=== PATIENT | female | born 1935 | race Caucasian/White ===

== ENCOUNTER 2022-12-26 17:11 | Inpatient (IN) | payer OTHER ==
--- OUTSIDE RECORDS SUMMARY | 2022-12-26 17:16 | XMS REPORT | Continuity of Care Document ---
:1935 Author Organization [facility] t Address [address] [place] [address] [address] [place] [address] Care Team Providers Name Role Phone Tutu Montiel MDammed Primary Care Physician CANDIDO KLINE MADHURA Attending Clinician Unavailable [id number] Attending Clinician Unavailable JIMENEZ MURPHY Attending Clinician Unavailable SISSONRyan Attending Clinician Unavailable Jose Elias Gonzalez Attending Clinician [phone] RADIOLOGY Attending Clinician Unavailable Radiology Attending Clinician Unavailable SATYA Attending Clinician Unavailable Maria Teresa Coates MD Attending Clinician MARIA TERESA COATES Attending Clinician Unavailable Pob, [facility] Main Attending Clinician Unavailable Doctor Unassigned, [place] Attending Clinician Unavailable Jimenez Murphy MD Attending Clinician Only, Adc Test Attending Clinician Unavailable CANDIDO KLINE MADHURA Admitting Clinician Unavailable [id number] Admitting Clinician Unavailable JIMENEZ MURPHY Admitting Clinician Unavailable SISSON_Uche Admitting Clinician Unavailable TAVON MATHEWS Admitting Clinician Unavailable SATYA Admitting Clinician Unavailable Jimenez Murphy MD Admitting Clinician Payers Payer Name Policy Type Policy Number Effective Date Expiration Date S [facility] [id number] MEDICARE PART A \\T\\ [id number] 1999 B 00:00:00 COMMERCIAL [id number] 2005 NON-CONTRACT GENERIC 00:00:00 [place]ICARE B-[place]: [id number] 1999 [employer] 00:00:00 [employer] [id number] INSURANCE COMPANY (MEDICARE SUPPLEMENT) [facility] [id number] Problems Condition Condition Condition Status Onset Resolution Last Treating Co mments Source Name Details Category Date Date Treatment Clinician Date Asthmatic Asthmatic Problem Active 2020-06 Swe [facility] bronchitis Bronchitis 2-15 [facility] 00:[facility]: [facility] Essential Essential Problem Active Swe [facility] hypertensi Hypertensi 8-17 [facility] on [facility] 00:00: [facility] Chest pain Chest pain Disease Active M ethodi 10-22 st 00:00: Hospita 00 l Essential Essential Disease Active Met hodi hypertensi hypertensi 10-22 st on on 00:00: Hospita 00 l Acquired Acquired Disease Active Metho di hypothyroi hypothyroi 10-22 st dism dism 00:00: Hospita 00 l Depression Depression Disease Active M ethodi 10-22 st 00:00: Hospita 00 l 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 10-22 st on on 00:00: Hospita 00 l Chest pain Chest pain Disease Active U nivers 505 ity of 00:00: [place] 00 Medical Branch Allergies, Adverse Reactions, Alerts Allergy Allergy Status Severity Reaction(s) Onset Inactive Treating Comm ents Source Name Type Date Date Clinician Ciproflo Propensi Active Method i xacin ty to 06 st adverse 00:00: Hospita reaction 00 l s to drug Ciproflo Propensi Active Hallucinatio Univers xacin ty to ns 505 ity of adverse 00:00: [place] reaction 00 Medical s Branch CIPROFLO DRUG Active Hallucinates Un myriam XACIN INGREDI 505 ity of 00:00: [place] 00 Medical Branch Social History Social Habit Start Date Stop Date Quantity Comments Source Exposure to Not sure [facility] of SARS-CoV-2 (event) [facility] History of tobacco Current smoker [facility] History of Social 2018-05-02 2018-05-[address] function 00:00:00 00:00:00 Hospital Tobacco use and 2017-10-23 2017-10-23 Smokeless Worship exposure 00:00:00 00:00:00 tobacco non-user Hospital Sex Assigned At [birth year] [facility] 00:00:00 00:00:00 Hospital Smoking Status Start Date Stop Date Source Former Smoker [facility] Never smoker [facility] Medications Ordered Filled Start Stop Current Ordering Indication Dosage Frequency Signature Comments Components Source Medication Medication Date Date Medication? Clinician (SIG) Name Name gadobenate 2021- No [id number] .2mL/kg 0.2 mL/kg, Univers dimeglumine 06-30 Intravenou i ty of (MULTIHANCE 18:15: 18:14 s, ONCE, 1 [place] -15 mL) 00 :00 dose, On Medical injection Wed Branch 0.2 mL/kg 06/30/21 at 1215, Routine losartan 25 2020-0 Yes 25mg Take 25 mg Univers mg tablet 8-13 by mouth ity of 10:32: daily. [place] 45 Medical Branch levothyroxi 2020-0 Yes Take by Uni vers ne sodium 8-13 mouth. ity of (LEVOTHYROX 10:32: [place] INE ORAL) 45 Medical Branch losartan 2020-0 Yes 100mg Take 100 Univ ers 100 mg 8-13 mg by ity of tablet 10:32: mouth [place] 45 daily. Medical Branch aspirin 81 2020-0 Yes 81mg Take 81 mg U nivers mg chewable 8-13 by mouth ity of tablet 10:32: daily. 4x [place] 45 weekly Medical Branch verapamil 2020-0 Yes 240mg Take 240 Uni vers 240 mg ER 8-13 mg by ity of tablet 10:32: mouth [place] 45 daily. Medical Branch montelukast 2020-0 Yes Take by Uni vers sodium 8-13 mouth. ity of (MONTELUKAS 10:32: [place] T ORAL) 45 Medical Branch cyanocobala 2020-0 Yes Take by Uni vers min, 8-13 mouth. ity of vitamin 10:32: [place] B-12, (-12 45 Medical DOTS ORAL) Branch omeprazole 2020-0 Yes 20mg Take 20 mg U nivers 20 mg 8-13 by mouth ity of capsule 10:32: daily. [place] [address] Medical Branch furosemide 2020-0 Yes 40mg Take 40 mg U nivers 40 mg 8-13 by mouth ity of tablet 10:32: daily. [place] [address] Medical Branch levalbutero 2020-0 Yes Use as Univ ers l 1.25 8-13 directed ity of mg/0.5 mL 10:32: every 4 [place] nebulizer 45 (four) Medical solution hours as Branch needed for Wheezing. thyroid,por 2020-0 Yes Take by Uni vers k (ARMOUR 8-13 mouth. ity of THYROID 10:32: [place] ORAL) Medical Branch losartan 25 2020-0 Yes 25mg Take 25 mg Univers mg tablet 8-13 by mouth ity of 10:32: daily. [place] [address] Medical Branch levothyroxi 2020-0 Yes Take by Uni vers ne sodium 8-13 mouth. ity of (LEVOTHYROX 10:32: [place] INE ORAL) Medical Branch losartan 2020-0 Yes 100mg Take 100 Univ ers 100 mg 8-13 mg by ity of tablet 10:32: mouth [place] 45 daily. Medical Branch aspirin 81 2020-0 Yes 81mg Take 81 mg U nivers mg chewable 8-13 by mouth ity of tablet 10:32: daily. 4x [place] 45 weekly Medical Branch verapamil 2020-0 Yes 240mg Take 240 Uni vers 240 mg ER 8-13 mg by ity of tablet 10:32: mouth [place] 45 daily. Medical Branch montelukast 2020-0 Yes Take by Uni vers sodium 8-13 mouth. ity of (MONTEL[place]AS 10:32: [place] T ORAL) Medical Branch cyanocobala 2020-0 Yes Take by Uni vers min, 8-13 mouth. ity of vitamin 10:32: [facility]-12, (B-12 45 Medical DOTS ORAL) Branch omeprazole 2020-0 Yes 20mg Take 20 mg U nivers 20 mg 8-13 by mouth ity of capsule 10:32: daily. [place] [address] Medical Branch furosemide 2020-0 Yes 40mg Take 40 mg U nivers 40 mg 8-13 by mouth ity of tablet 10:32: daily. [place] [address] Medical Branch levalbutero 2020-0 Yes Use as Univ ers l 1.25 8-13 directed ity of mg/0.5 mL 10:32: every 4 [place] nebulizer 45 (four) Medical solution hours as Branch needed for Wheezing. thyroid,por 2020-0 Yes Take by Uni vers k (ARMOUR 8-13 mouth. ity of THYROID 10:32: [place] ORAL) 45 Medical Branch losartan 25 2020-0 Yes 25mg Take 25 mg Univers mg tablet 8-13 by mouth ity of 10:32: daily. [place] 45 Medical Branch levothyroxi 2020-0 Yes Take by Uni vers ne sodium 8-13 mouth. ity of (LEVOTHYROX 10:32: [place] INE ORAL) 45 Medical Branch losartan 2020-0 Yes 100mg Take 100 Univ ers 100 mg 8-13 mg by ity of tablet 10:32: mouth [place] 45 daily. Medical Branch aspirin 81 2020-0 Yes 81mg Take 81 mg U nivers mg chewable 8-13 by mouth ity of tablet 10:32: daily. 4x [place] 45 weekly Medical Branch verapamil 2020-0 Yes 240mg Take 240 Uni vers 240 mg ER 8-13 mg by ity of tablet 10:32: mouth [place] 45 daily. Medical Branch montelukast 2020-0 Yes Take by Uni vers sodium 8-13 mouth. ity of (MONTEL[place]AS 10:32: [place] T ORAL) 45 Medical Branch cyanocobala 2020-0 Yes Take by Uni vers min, 8-13 mouth. ity of vitamin 10:32: [place] B-12, (B-12 45 Medical DOTS ORAL) Branch omeprazole 2020-0 Yes 20mg Take 20 mg U nivers 20 mg 8-13 by mouth ity of capsule 10:32: daily. [place] [address] Medical Branch furosemide 2020-0 Yes 40mg Take 40 mg U nivers 40 mg 8-13 by mouth ity of tablet 10:32: daily. 45 Medical Branch levalbutero 2020-0 Yes Use as Univ ers l 1.25 8-13 directed ity of mg/0.5 mL 10:32: every 4 [place] nebulizer 45 (four) Medical solution hours as Branch needed for Wheezing. thyroid,por 2020-0 Yes Take by Uni vers k (ARMOUR 8-13 mouth. ity of THYROID 10:32: [place] ORAL) 45 Medical Branch hydroCHLORO 2018-1 Yes 25mg Take 1 Univ ers thiazide 25 1-10 tablet by ity of mg tablet 00:00: mouth [place] 00 every Medical morning Branch and evening. hydroCHLORO 2018-1 Yes 25mg Take 1 Univ ers thiazide 25 1-10 tablet by ity of mg tablet 00:00: mouth [place] 00 every Medical morning Branch and evening. hydroCHLORO 2018-1 Yes 25mg Take 1 Univ ers thiazide 25 1-10 tablet by ity of mg tablet 00:00: mouth [place] 00 every Medical morning Branch and evening. aspirin 2018-0 Yes 81mg QD Take 81 mg Meth cyndy (ECOTRIN) 5-[address] 81 MG 14:25: daily. Hospita enteric 47 l coated tablet FLUoxetine 2018-0 Yes 10mg QD Take 10 mg M ethodi (PROzac) 10 5-[address] MG capsule 14:25: daily. Hospi ta 47 l hydroCHLORO 2018-0 Yes 25mg QD Take 25 mg Methodi thiazide 5-[address] (HYDRODIURI 14:25: daily. Hosp terrell L) 25 MG 47 l tablet losartan 2017-0 Yes 100mg QD Take 100 Meth cyndy (COZAAR) 5-[address] 100 MG 14:25: mouth Hospita tablet 47 daily. l omeprazole 2018-0 Yes 20mg QD Take 20 mg M ethodi (PriLOSEC) 5-[address] 20 MG 14:25: daily. Hospita capsule 47 l verapamil 2018-0 Yes 240mg QD Take 240 Met hodi sustained 5-[address] release 14:25: mouth Hospita (CALAN-SR) 47 nightly. l 240 MG SR tablet acetaminoph 2017-0 Yes 650mg Q6H Take 650 M ethodi en 5-[address] (TYLENOL) 14:25: mouth Hospita 325 MG 47 every 6 l tablet (six) hours as needed for mild pain or moderate pain. thyroid, 2018-0 Yes 15mg QD Take 15 mg Met hodi pork, 5-[address] (ARMOUR 14:25: daily. Hospita THYROID) 30 47 l mg tablet aspirin 2018-0 Yes 81mg QD Take 81 mg Meth cyndy (ECOTRIN) 5-[address] 81 MG 14:25: daily. Hospita enteric 47 l coated tablet FLUoxetine 2018-0 Yes 10mg QD Take 10 mg M ethodi (PROzac) 10 5-[address] MG capsule 14:25: daily. Hospi ta 47 l hydroCHLORO 2018-0 Yes 25mg QD Take 25 mg Methodi thiazide 5-[address] (HYDRODIURI 14:25: daily. Hosp terrell L) 25 MG 47 l tablet losartan 2017-0 Yes 100mg QD Take 100 Meth cyndy (COZAAR) 5-[address] 100 MG 14:25: mouth Hospita tablet 47 daily. l omeprazole 2017-0 Yes 20mg QD Take 20 mg M ethodi (PriLOSEC) 5-[address] 20 MG 14:25: daily. Hospita capsule 47 l verapamil 2018-0 Yes 240mg QD Take 240 Met hodi sustained 5-[address] release 14:25: mouth Hospita (CALAN-SR) 47 nightly. l 240 MG SR tablet acetaminoph 2017-0 Yes 650mg Q6H Take 650 M ethodi en 5-[address] (TYLENOL) 14:25: mouth Hospita 325 MG 47 every 6 l tablet (six) hours as needed for mild pain or moderate pain. thyroid, 2017-0 Yes 15mg QD Take 15 mg Met hodi pork, 5-[address] (ARMOUR 14:25: daily. Hospita THYROID) 30 47 l mg tablet albuterol albuterol No albuterol [facility] sulfate 2.5 sulfate 2.5 sulfate Communi mg/3 mL mg/3 mL 2.5 mg/3 ty (0.083 %) (0.083 %) mL (0.083 Hospita solution solution %) l for for solution Clinics nebulizatio nebulizatio for n USE 1 n USE 1 nebulizati AMPULE VIA AMPULE VIA on USE 1 NEBULIZER NEBULIZER AMPULE VIA EVERY 4 TO EVERY 4 TO NEBULIZER 6 HOURS 6 HOURS EVERY 4 TO 6 HOURS aspirin aspirin No aspirin [facility] l Clinics ciprofloxac ciprofloxac No ciprofloxa [facility] in 500 mg in 500 mg ruth 500 mg Communi tablet Take tablet Take tablet ty 1 tablet 1 tablet Take 1 Hospi ta every 12 every 12 tablet l hours by hours by every 12 Cli nics oral route oral route hours by for 7 days. for 7 days. oral route for 7 days. diclofenac diclofenac No diclofenac [facility] 1 % topical 1 % topical 1 % C om[facility]i gel APPLY gel APPLY topical ty DIRECTED DIRECTED gel APPLY Hospita TOPICALLY TOPICALLY l TO THE TO THE DIRECTED Clinics AFFECTED AFFECTED TOPICALLY AREA TWICE AREA TWICE TO THE DAILY DAILY AFFECTED AREA TWICE DAILY fluoxetine fluoxetine No fluoxetine [facility] 10 mg 10 mg 10 mg Communi capsule 2 capsule 2 capsule 2 ty tabs Q AM tabs Q AM tabs Q [facility] furosemide furosemide No furosemide [facility] 40 mg 40 mg 40 mg Communi tablet tablet tablet ty [facility] gabapentin gabapentin No gabapentin [facility] 100 mg 100 mg 100 mg Communi capsule capsule capsule ty TAKE 1 TAKE 1 TAKE 1 Hospita CAPSULE BY CAPSULE BY CAPSULE BY l MOUTH EVERY MOUTH EVERY MOUTH Clinics DAY AT DAY AT EVERY DAY BEDTIME BEDTIME AT BEDTIME levocetiriz levocetiriz No levocetiri [facility] ine 5 mg ine 5 mg zine 5 mg Co mmuni tablet TAKE tablet TAKE tablet ty 1 TABLET BY 1 TABLET BY TAKE 1 Hospita MOUTH EVERY MOUTH EVERY TABLET BY l DAY IN THE DAY IN THE MOUTH Cl inics EVENING EVENING EVERY DAY IN THE EVENING Linzess 72 Linzess 72 No Linzess 72 [facility] mcg capsule mcg capsule mcg C ommuni TAKE 1 TAKE 1 capsule ty CAPSULE BY CAPSULE BY TAKE 1 H ospita MOUTH EVERY MOUTH EVERY CAPSULE BY l DAY DAY MOUTH Clinics EVERY DAY losartan losartan No losartan Swe [facility] 100 mg 100 mg 100 mg Communi tablet tablet tablet ty [facility] montelukast montelukast No montelukas [facility] 10 mg 10 mg t 10 mg Communi tablet TAKE tablet TAKE tablet ty 1 TABLET BY 1 TABLET BY TAKE 1 Hospita MOUTH EVERY MOUTH EVERY TABLET BY l DAY IN THE DAY IN THE MOUTH Cl inics EVENING EVENING EVERY DAY IN THE EVENING AUTOMATIC CLIPPER Thyroid AUTOMATIC CLIPPER Thyroid No AUTOMATIC CLIPPER Thyroid [facility] 30 mg 30 mg 30 mg Communi tablet TAKE tablet TAKE tablet ty 1 TABLET BY 1 TABLET BY TAKE 1 Hospita MOUTH EVERY MOUTH EVERY TABLET BY l DAY DAY MOUTH Clinics EVERY DAY omeprazole omeprazole No omeprazole [facility] 20 mg 20 mg 20 mg Communi capsule,del capsule,del capsule,de ty ayed ayed layed Hospita release release release l TAKE 1 TAKE 1 TAKE 1 Clinics CAPSULE BY CAPSULE BY CAPSULE BY MOUTH TWICE MOUTH TWICE MOUTH DAILY DAILY TWICE DAILY Trelegy Trelegy No Trelegy Butler Ellipta 100 Ellipta 100 Ellipta Communi mcg-62.5 mcg-62.5 100 ty mcg-25 mcg mcg-25 mcg mcg-62.5 Hospita powder for powder for mcg-25 mcg l inhalation inhalation powder for Clinics INHALE 1 INHALE 1 inhalation PUFF BY PUFF BY INHALE 1 MOUTH EVERY MOUTH EVERY PUFF BY DAY DAY MOUTH EVERY DAY verapamil verapamil No verapamil [facility] ER 240 mg ER 240 mg ER 240 mg Communi 24 hr 24 hr 24 hr ty capsule,ext capsule,ext capsule,ex Hospita ended ended tended l release release release Clinic s albuterol albuterol No 3mL Q5H albuterol [facility] sulfate 2.5 sulfate 2.5 sulfate Communi mg/3 mL mg/3 mL 2.5 mg/3 ty (0.083 %) (0.083 %) mL (0.083 Hospita solution solution %) l for for solution Clinics nebulizatio nebulizatio for n Inhale 3 n Inhale 3 nebulizati mL every mL every on Inhale 4-6 hours 4-6 hours 3 mL every by by 4-6 hours nebulizatio nebulizatio by n route. n route. nebulizati on route. Cayce Cayce No Cayce [facility] Thyroid 30 Thyroid 30 Thyroid 30 Communi mg tablet mg tablet mg tablet ty TK 1 T PO TK 1 T PO TK 1 T PO Hospita QD. SEE QD. SEE QD. SEE l DOCTOR FOR DOCTOR FOR DOCTOR FOR Clinics REFILLS. REFILLS. REFILLS. aspirin aspirin No aspirin [facility] Clinics benzonatate benzonatate No 1capsul TID benzonatat [facility] 200 mg 200 mg e(s) e 200 mg Communi capsule capsule capsule ty Take 1 Take 1 Take 1 Hospita capsule 3 capsule 3 capsule 3 l times a day times a day times a Clinics by oral by oral day by route for route for oral route 10 days. 10 days. for 10 days. Breztri Breztri No 2puff(s BID Breztri Swe gaston Aerosphere Aerosphere ) Aerosphere Communi 160 160 160 ty mcg-9mcg-4. mcg-9mcg-4. mcg-9mcg-4 Hospita 8mcg/actuat 8mcg/actuat .8mcg/actu l ion HFA ion HFA ation HFA Clin ics aerosol aerosol aerosol inhaler inhaler inhaler Inhale 2 Inhale 2 Inhale 2 puffs twice puffs twice puffs a day by a day by twice a inhalation inhalation day by route for route for inhalation 30 days. 30 days. route for 30 days. diclofenac diclofenac No diclofenac [facility] 1 % topical 1 % topical 1 % C om[facility]i gel APPLY gel APPLY topical ty DIRECTED DIRECTED gel APPLY Hospita TOPICALLY TOPICALLY l TO THE TO THE DIRECTED Clinics AFFECTED AFFECTED TOPICALLY AREA TWICE AREA TWICE TO THE DAILY DAILY AFFECTED AREA TWICE DAILY fluoxetine fluoxetine No fluoxetine [facility] 10 mg 10 mg 10 mg Communi capsule capsule capsule ty [facility] furosemide furosemide No furosemide [facility] 40 mg 40 mg 40 mg Communi tablet tablet tablet ty [facility] levocetiriz levocetiriz No levocetiri [facility] ine 5 mg ine 5 mg zine 5 mg Co mmuni tablet TAKE tablet TAKE tablet ty 1 TABLET BY 1 TABLET BY TAKE 1 [facility] MOUTH EVERY MOUTH EVERY TABLET BY l DAY IN THE DAY IN THE MOUTH Cl inics EVENING EVENING EVERY DAY IN THE EVENING losartan losartan No losartan Swe [facility] 100 mg 100 mg 100 mg Communi tablet tablet tablet ty [facility] montelukast montelukast No montelukas [facility] 10 mg 10 mg t 10 mg Communi tablet TAKE tablet TAKE tablet ty 1 TABLET BY 1 TABLET BY TAKE 1 [facility] MOUTH EVERY MOUTH EVERY TABLET BY l DAY IN THE DAY IN THE MOUTH Cl inics EVENING EVENING EVERY DAY IN THE EVENING omeprazole omeprazole No omeprazole [facility] 20 mg 20 mg 20 mg Communi capsule,del capsule,del capsule,de ty ayed ayed layed Hospita release release release l TAKE 1 TAKE 1 TAKE 1 Clinics CAPSULE BY CAPSULE BY CAPSULE BY MOUTH TWICE MOUTH TWICE MOUTH DAILY DAILY TWICE DAILY verapamil verapamil No verapamil [facility] ER 240 mg ER 240 mg ER 240 mg Communi 24 hr 24 hr 24 hr ty capsule,ext capsule,ext capsule,ex Hospita ended ended tended l release release release Clinic s albuterol albuterol No albuterol [facility] sulfate 2.5 sulfate 2.5 sulfate Communi mg/3 mL mg/3 mL 2.5 mg/3 ty (0.083 %) (0.083 %) mL (0.083 Hospita solution solution %) l for for solution Clinics nebulizatio nebulizatio for n USE 1 n USE 1 nebulizati AMPULE VIA AMPULE VIA on USE 1 NEBULIZER NEBULIZER AMPULE VIA EVERY 4 TO EVERY 4 TO NEBULIZER 6 HOURS 6 HOURS EVERY 4 TO 6 HOURS Cayce Cayce No Cayce [facility] Thyroid 30 Thyroid 30 Thyroid 30 Communi mg tablet mg tablet mg tablet ty TK 1 T PO TK 1 T PO TK 1 T PO Hospita QD. SEE QD. SEE QD. SEE l DOCTOR FOR DOCTOR FOR DOCTOR FOR Clinics REFILLS. REFILLS. REFILLS. aspirin aspirin No aspirin [facility] Clinics azithromyci azithromyci No azithromyc [facility] n 250 mg n 250 mg in 250 mg Co mmuni tablet TK 2 tablet TK 2 tablet TK ty TS PO ON TS PO ON 2 TS PO ON H ospita DAY 1, THEN DAY 1, THEN DAY 1, l TK 1 T PO D TK 1 T PO D THEN TK 1 Clinics FOR 4 DAYS FOR 4 DAYS T PO D FOR 4 DAYS benzonatate benzonatate No benzonatat [facility] 200 mg 200 mg e 200 mg Communi capsule capsule capsule ty TAKE 1 TAKE 1 TAKE 1 Hospita CAPSULE BY CAPSULE BY CAPSULE BY l MOUTH THREE MOUTH THREE MOUTH Clinics TIMES DAILY TIMES DAILY THREE FOR 10 DAYS FOR 10 DAYS TIMES DAILY FOR 10 DAYS Breztri Breztri No Breztri [facility] Aerosphere Aerosphere Aerosphere Communi 160 160 160 ty mcg-9mcg-4. mcg-9mcg-4. mcg-9mcg-4 Hospita 8mcg/actuat 8mcg/actuat .8mcg/actu l ion HFA ion HFA ation HFA Clin ics aerosol aerosol aerosol inhaler inhaler inhaler INHALE 2 INHALE 2 INHALE 2 PUFFS BY PUFFS BY PUFFS BY MOUTH TWICE MOUTH TWICE MOUTH DAILY DAILY TWICE DAILY cefuroxime cefuroxime No cefuroxime [facility] axetil 500 axetil 500 axetil 500 Communi mg tablet mg tablet mg tablet ty TAKE 1 TAKE 1 TAKE 1 Hospita TABLET BY TABLET BY TABLET BY l MOUTH TWICE MOUTH TWICE MOUTH Clinics DAILY FOR DAILY FOR TWICE 10 DAYS 10 DAYS DAILY FOR 10 DAYS diclofenac diclofenac No diclofenac [facility] 1 % topical 1 % topical 1 % C ommuni gel APPLY gel APPLY topical ty DIRECTED DIRECTED gel APPLY Hospita TOPICALLY TOPICALLY l TO THE TO THE DIRECTED Clinics AFFECTED AFFECTED TOPICALLY AREA TWICE AREA TWICE TO THE DAILY DAILY AFFECTED AREA TWICE DAILY fluoxetine fluoxetine No fluoxetine [facility] 10 mg 10 mg 10 mg Communi capsule capsule capsule ty [facility] furosemide furosemide No furosemide [facility] 40 mg 40 mg 40 mg Communi tablet tablet tablet ty [facility] levocetiriz levocetiriz No levocetiri [facility] ine 5 mg ine 5 mg zine 5 mg Co mmuni tablet TAKE tablet TAKE tablet ty 1 TABLET BY 1 TABLET BY TAKE 1 Hospita MOUTH EVERY MOUTH EVERY TABLET BY l DAY IN THE DAY IN THE MOUTH Cl inics EVENING EVENING EVERY DAY IN THE EVENING levofloxaci levofloxaci No 1 Q24H levofloxac [facility] n 500 mg n 500 mg in 500 mg Co mmuni tablet Take tablet Take tablet ty 1 tablet 1 tablet Take 1 Hospi ta every 24 every 24 tablet l hours by hours by every 24 Cli nics oral route oral route hours by for 7 days. for 7 days. oral route for 7 days. Linzess 72 Linzess 72 No 1capsul Q1D Linzess 72 [facility] mcg capsule mcg capsule e(s) mcg C ommuni Take 1 Take 1 capsule ty capsule capsule Take 1 Hospita every day every day capsule l by oral by oral every day Clin ics route for route for by oral 30 days. 30 days. route for 30 days. losartan losartan No losartan [facility] 100 mg 100 mg 100 mg Communi tablet tablet tablet ty [facility] montelukast montelukast No montelukas [facility] 10 mg 10 mg t 10 mg Communi tablet TAKE tablet TAKE tablet ty 1 TABLET BY 1 TABLET BY TAKE 1 Hospita MOUTH EVERY MOUTH EVERY TABLET BY l DAY IN THE DAY IN THE MOUTH Cl inics EVENING EVENING EVERY DAY IN THE EVENING omeprazole omeprazole No omeprazole [facility] 20 mg 20 mg 20 mg Communi capsule,del capsule,del capsule,de ty ayed ayed layed Hospita release release release l TAKE 1 TAKE 1 TAKE 1 Clinics CAPSULE BY CAPSULE BY CAPSULE BY MOUTH TWICE MOUTH TWICE MOUTH DAILY DAILY TWICE DAILY prednisone prednisone No 1 BID prednisone [facility] 20 mg 20 mg 20 mg Communi tablet Take tablet Take tablet ty 1 tablet 1 tablet Take 1 Hospi ta twice a day twice a day tablet l by oral by oral twice a Clinic s route for 5 route for 5 day by days. days. oral route for 5 days. verapamil verapamil No verapamil [facility] ER 240 mg ER 240 mg ER 240 mg Communi 24 hr 24 hr 24 hr ty capsule,ext capsule,ext capsule,ex Hospita ended ended tended l release release release Clinic s albuterol albuterol No albuterol [facility] sulfate 2.5 sulfate 2.5 sulfate Communi mg/3 mL mg/3 mL 2.5 mg/3 ty (0.083 %) (0.083 %) mL (0.083 Hospita solution solution %) l for for solution Clinics nebulizatio nebulizatio for n USE 1 n USE 1 nebulizati AMPULE VIA AMPULE VIA on USE 1 NEBULIZER NEBULIZER AMPULE VIA EVERY 4 TO EVERY 4 TO NEBULIZER 6 HOURS 6 HOURS EVERY 4 TO 6 HOURS aspirin aspirin No aspirin [facility] l Clinics diclofenac diclofenac No diclofenac [facility] 1 % topical 1 % topical 1 % C ommuni gel APPLY gel APPLY topical ty DIRECTED DIRECTED gel APPLY Hospita TOPICALLY TOPICALLY l TO THE TO THE DIRECTED Clinics AFFECTED AFFECTED TOPICALLY AREA TWICE AREA TWICE TO THE DAILY DAILY AFFECTED AREA TWICE DAILY fluoxetine fluoxetine No fluoxetine [facility] 10 mg 10 mg 10 mg Communi capsule 2 capsule 2 capsule 2 ty tabs Q AM tabs Q AM tabs Q AM Hospita l Clinics furosemide furosemide No furosemide [facility] 40 mg 40 mg 40 mg Communi tablet tablet tablet ty Hospita l Clinics gabapentin gabapentin No 1capsul Q1D gabapentin [facility] 100 mg 100 mg e(s) 100 mg Communi capsule capsule capsule ty Take 1 Take 1 Take 1 Hospita capsule capsule capsule l every day every day every day Clinics by oral by oral by oral route at route at route at bedtime for bedtime for bedtime 90 days. 90 days. for 90 days. levocetiriz levocetiriz No levocetiri [facility] ine 5 mg ine 5 mg zine 5 mg Co mmuni tablet TAKE tablet TAKE tablet ty 1 TABLET BY 1 TABLET BY TAKE 1 Hospita MOUTH EVERY MOUTH EVERY TABLET BY l DAY IN THE DAY IN THE MOUTH Cl inics EVENING EVENING EVERY DAY IN THE EVENING Linzess 72 Linzess 72 No 1capsul Q1D Linzess 72 [facility] mcg capsule mcg capsule e(s) mcg C ommuni Take 1 Take 1 capsule ty capsule capsule Take 1 Hospita every day every day capsule l by oral by oral every day Clin ics route for route for by oral 30 days. 30 days. route for 30 days. losartan losartan No losartan Swe [facility] 100 mg 100 mg 100 mg Communi tablet tablet tablet ty [facility]ospita [facility] Clinics montelukast montelukast No montelukas [facility] 10 mg 10 mg t 10 mg Communi tablet TAKE tablet TAKE tablet ty 1 TABLET BY 1 TABLET BY TAKE 1 Hospita MOUTH EVERY MOUTH EVERY TABLET BY l DAY IN THE DAY IN THE MOUTH Cl inics EVENING EVENING EVERY DAY IN THE EVENING AUTOMATIC CLIPPER Thyroid AUTOMATIC CLIPPER Thyroid No AUTOMATIC CLIPPER Thyroid [facility] 30 mg 30 mg 30 mg Communi tablet TAKE tablet TAKE tablet ty 1 TABLET BY 1 TABLET BY TAKE 1 Hospita MOUTH EVERY MOUTH EVERY TABLET BY l DAY DAY MOUTH Clinics EVERY DAY omeprazole omeprazole No omeprazole [facility] 20 mg 20 mg 20 mg Communi capsule,del capsule,del capsule,de ty ayed ayed layed Hospita release release release l TAKE 1 TAKE 1 TAKE 1 Clinics CAPSULE BY CAPSULE BY CAPSULE BY MOUTH TWICE MOUTH TWICE MOUTH DAILY DAILY TWICE DAILY Trelegy Trelegy No Trelegy [facility] Ellipta 100 Ellipta 100 Ellipta Communi mcg-62.5 mcg-62.5 100 ty mcg-25 mcg mcg-25 mcg mcg-62.5 Hospita powder for powder for mcg-25 mcg l inhalation inhalation powder for Clinics INHALE 1 INHALE 1 inhalation PUFF BY PUFF BY INHALE 1 MOUTH EVERY MOUTH EVERY PUFF BY DAY DAY MOUTH EVERY DAY verapamil verapamil No verapamil [facility] ER 240 mg ER 240 mg ER 240 mg Communi 24 hr 24 hr 24 hr ty capsule,ext capsule,ext capsule,ex Hospita ended ended tended l release release release Clinic s Immunizations Ordered Immunization Filled Immunization Date Status Commen ts Source Name Name Influenza, Influenza, 2021-04-16 Completed [facility] ty injectable, MDCK, injectable, MDCK, 10:07:46 Hospital Clinics preservative free, preservative free, quadrivalent quadrivalent Influenza, Influenza, 2021-04-16 Completed [facility] injectable, MDCK, injectable, MDCK, 10:07:46 Hospital Clinics preservative free, preservative free, quadrivalent quadrivalent Influenza, Influenza, 2021-04-16 Completed [facility] ty injectable, MDCK, injectable, MDCK, 10:07:46 Hospital Clinics preservative free, preservative free, quadrivalent quadrivalent Vital Signs Vital Name Observation Time Observation Value Comments Source BP Diastolic 2022-10-11 00:00:00 65 mm[Hg] [facility] Height 2022-10-11 00:00:00 65 [in_i] [facility] BMI (Body Mass 2022-10-11 00:00:00 21.6 kg/m2 [facility]) [facility] BP Systolic 2022-10-11 00:00:00 125 mm[Hg] [facility] Body Weight 2022-10-11 00:00:00 2080 [oz_av] [facility] s BP Diastolic 2022-09-01 00:00:00 70 mm[Hg] [facility] Height 2022-09-01 00:00:00 65 [in_i] [facility] s BMI (Body Mass 2022-09-01 00:00:00 20.6 kg/m2 [facility]) [facility] s BP Systolic 2022-09-01 00:00:00 134 mm[Hg] [facility] Body Weight 2022-09-01 00:00:00 1984 [oz_av] [facility] s BP Diastolic 2021-10-15 00:00:00 79 mm[Hg] [facility] Height 2021-10-15 00:00:00 65 [in_i] [facility] s BMI (Body Mass 2021-10-15 00:00:00 21.5 kg/m2 [facility]) [facility] s BP Systolic 2021-10-15 00:00:00 163 mm[Hg] [facility] s Body Weight 2021-10-15 00:00:00 2065.6 [oz_av] [facility] BP Diastolic 2021-04-14 00:00:00 75 mm[Hg] [facility] s Height 2021-04-14 00:00:00 65 [in_i] [facility] s BMI (Body Mass 2021-04-14 00:00:00 22 kg/m2 [facility] Index) [facility] s BP Systolic 2021-04-14 00:00:00 171 mm[Hg] [facility] Body Weight 2021-04-14 00:00:00 2112 [oz_av] [facility] Procedures Procedure Date / Time Performing Clinician Source Performed XR, chest, 2 view 2022-10-11 00:00:00 [facility] MR ABDOMEN W WO CONTRAST 2021-06-30 18:22:56 Requisition, Paper [facility] FECAL IMMUNOCHEMICAL TEST 2021-02-11 00:36:00 [facility] 2020-12-14 21:56:00 Tavon Mathews [facility] HORMONE [facility] COMP. METABOLIC PANEL 2020-12-14 21:56:00 Tavon Mathews [facility] ([id number]) [facility] Total Hysterectomy [facility] Plan of Care Planned Activity Planned Date Details Comments Source Future Scheduled 2022-12-01 COVID-19 VACCINE (#1) [facility] Test 10:28:51 [code = COVID-19 VACCINE (#1)] Future Scheduled 2022-12-01 SHINGLES VACCINES (1 [facility] Test 10:28:51 of 2) [code = SHINGLES VACCINES (1 of 2)] Future Scheduled 2022-12-01 65+ [facility]CCAL [facility] Test 10:28:51 VACCINE (1 - PCV) [code = 65+ PNEUMOCOCCAL VACCINE (1 - PCV)] Future Scheduled 2022-12-01 INFLUENZA VACCINE [facility] Test 10:28:51 [code = INFLUENZA VACCINE] Diagnostic Test 2022-10-11 urinalysis, dipstick [facility] Pending 00:00:00 [code = urinalysis, Hospital Clinics dipstick] Future Scheduled 2021-07-20 COVID-19 VACCINE (1) [facility] Test 21:18:13 [code = COVID-19 VACCINE (1)] Future Scheduled 2021-07-20 SHINGLES VACCINES [facility] Test 21:18:13 (#1) [code = SHINGLES VACCINES (#1)] Future Scheduled 2021-07-20 65+ P[facility]UMOCOCCAL [facility] Test 21:18:13 VACCINE (1 of 1 - PPSV23) [code = 65+ PNEUMOCOCCAL VACCINE (1 of 1 - PPSV23)] Future Scheduled 2021-07-20 INFLUENZA VACCINE [facility] Test 21:18:13 [code = INFLUENZA VACCINE] Encounters Start End Encounter Admission Attending Care Care Encounter Source Date/Time Date/Time Type Type Clinicians Facility Department ID 2022-09-02 Outpatient 3 ELISA KLINE PUL [id number] [facility] 10:56:48 [facility]O [id number] [place] 2022-09-01 Outpatient 3 [id number] ENCSL REF [id number] [facility] 18:48:14 [id number] [facility] [place] 2022-08-25 Outpatient 3 [id number] ENCSL REF [id number] [facility] 13:11:21 [id number] [facility] [place] 2021-04-16 Outpatient R [facility] SUSANNE [id number] Univers 10:24:22 JIMENEZ Duncan [facility] 2022-10-11 2022-10-11 Outpatient LISA_Uche [facility] [id number] [facility] 00:00:00 00:00:[address] [place] [address] i ty Hospita l Clinics 2022-10-11 2022-10-11 [facility] [place] [facility] 00:00:00 00:00:00 Ilsa Gonzalez [facility] uni MSN, RECEPTIONIST SCHEDULER, Hospital - ty BUNKER WORKER-C: [address] [facility], Clinic s [address] [facility] [address], Sharon Gonzalez, JOHAN MSN, BUNKER WORKER-C [address] , Ph. 2022-09-03 2022-09-12 Inpatient 3 ELISA KLINE [facility] [id number] [facility] 15:22:00 12:35:00 CANDIDO [id number] [facility] itation [place] 2022-09-01 2022-09-01 [facility] [place] [id number] [facility] 00:00:00 00:00:00 Lisa [facility] uni MSN, RECEPTIONIST SCHEDULER, Hospital - ty BUNKER WORKER-C: [address] [facility] [address] [facility], Clinic s [address], Jose Elias [address], Sharon Gonzalez, [place] MSN, BUNKER WORKER-C [address] , Ph. 2021-10-15 2021-10-15 Outpatient [facility] [id number] [facility] 05:31:00 05:31:00 429 Commun i ty Hospita [facility] 2021-10-15 2021-10-15 [facility] [id number] 0230 [facility] 00:00:00 00:00:00 316 Commun i ty Hospita [facility] 2021-10-15 2021-10-15 [facility] [place] [id number] [facility] 00:00:00 00:00:00 iLsa [facility] uni MSN, RECEPTIONIST SCHEDULER, Hospital - ty BUNKER WORKER-C: [address] [facility], [facility] s [address], [facility] [address], Sharon Gonzalez, [place] MSN, BUNKER WORKER-C [address] , Ph. 2021-10-15 2021-10-15 [facility] [id number] 00:00:00 00:00:00 [facility] [id number] 2021-06-30 2021-06-30 Outpatient R RADIOLOGY [facility] [id number] Univers 10:12:31 23:59:00 ity [facility] 2021-06-30 2021-06-30 Hospital Radiology [facility] 1.2.840.114 [id number] Univers 10:12:31 23:59:00 Encounter VAUGHN [id number] ity [facility] 4.2.7.2.686 [place] [facility] [phone] [facility] [address] 2021-04-14 2021-04-14 Outpatient HARMONY [facility] 632 [place] 06:03:00 06:03:00 _L 027 Commun i ty Hospita l Clinics 2021-04-14 2021-04-14 [facility] [place] 27 [facility] 00:00:00 00:00:00 Lisa [facility] MSN, RECEPTIONIST SCHEDULER, Hospital - ty BUNKER WORKER-C: [address] [facility], Clinic s [address], [facility] [address], [place], [place] MSN, BUNKER WORKER-C [address] , Ph. 2021-04-14 2021-04-14 Outpatient [facility] [id number] 00:00:00 00:00:00 [facility] [id number] 2021-02-27 2021-02-27 [place] [id number] Univers 15:29:00 23:59:00 Encounter Maria Teresa Hoffman [id number] ity of [facility] 4.2.7.2.686 Isaias as [phone] [address] 2021-02-27 2021-02-27 [facility]patient [facility] [id number] Univers 00:00:00 00:00:00 MARIA TERESA grover [facility] 2021-02-10 2021-02-[address]840[address]114 [id number] Univers 09:11:00 23:59:00 Encounter Maria Teresa Hoffman [id number] ity of [facility] 4.2.7.2.686 Isaias as [id number] [address] 2021-02-10 2021-02-10 [facility] [id number] Univers 00:00:00 00:00:00 MARIA TERESA grover [facility] 2020-12-14 2020-12-14 Soap Drier Operator Rodolfo, [facility] Lab Main [facility] 1.2.8 40.114 [id number] Univers 16:36:17 16:51:17 Visit Maria Teresa Coates [id number] ity of [place] 4.2.7.2.686 [place] Profess[place] [id number] [address] 2020-12-14 2020-12-14 Outpatient R JAXON [facility] [id number] Univers 16:45:00 16:45:00 MARIA TERESA ity of [facility] 2020-12-14 2020-12-14 Orders Doctor PRIYA 1.2.840.114 [id number] Univers 00:00:00 00:00:00 Only Unassigned, TONG [id number] ity of [place] [facility] 4.2.7.2.686 Isaias as [id number] [address] 2020-01-30 2020-01-30 [facility] 1.2.840.114 [id number] 07:35:00 10:32:00 Encounter eJimenezton 350.1.13.10 [place] 4.2.7.2.686 Surgical [id number] [place] [address] 2020-01-30 2020-01-30 [facility] 1.2.840.114 [id number] Univers 07:35:00 10:32:00 Encounter Jimenez duncan 350.1.13.10 ity of [place].2.7.2.686 [place] Surgical [phone] Med [address] 2020-01-29 2020-01-29 Laboratory Only, [facility] 1.2.840.114 [id number] 13:36:55 13:51:55 Only Test Lilian 350.1.13.10 [place] 4.2.7.2.686 [place] [id number] [facility] 2020-01-29 2020-01-29 Laboratory Only, [facility] Test [facility] 1.2.840. 114 [id number] Univers 13:36:55 13:51:55 Only Charafeddine, Nizar [address] [place] 350.1.1 3.10 ity of [place] 4.2.7.2.686 [facility] [id number] [facility] [address] 2020-01-29 2020-01-29 Outpatient R [facility] [id number] Univers 13:45:00 13:45:00 JIMENEZ Duncan f [facility] 2020-01-29 2020-01-29 Orders Doctor POWERS 1.2.840.114 [id number] 00:00:00 00:00:00 Only Unassigned, TONG 350.1.13.10 [place] [facility] 4.2.7.2.686 [id number] [id number] 2020-01-29 2020-01-29 Orders Doctor PRIYA 1.2.840.114 [id number] Univers 00:00:00 00:00:00 Only Unassigned, TONG 350.1.13.10 ity of [place] [facility] 4.2.7.2.686 Isaias [id number] [facility] [address] 2020-01-06 2020-01-06 [facility] 1.2.840.114 [id number] 09:44:00 23:59:00 Encounter Jimenez [place] 350.1.13.10 [place] 4.2.7.2.686 [place] [id number] 801 2020-01-06 2020-01-06 [facility] 1.2.840.114 [id number] Univers 09:44:00 23:59:00 Encounter Jimenez [place] 350.1.13.10 ity of [place] 4.2.7.2.686 [facility] [id number] [facility] [address] 2020-01-06 2020-01-06 Outpatient R [facility] [id number] Univers 00:00:00 00:00:00 JIMENEZ Duncan [facility] 2019-12-24 2019-12-24 Soap Drier Operator Musa Reynolds [facility] 1.2.840.114 [id number] 15:06:30 15:21:30 Visit Lab Main Lilian 350.1.13.10 [place] 4.2.7.2.686 [facility] [phone] [address] 2019-12-24 2019-12-24 Soap Drier Operator Rodolfo, Musa Lab Main [facility] 1.2.8 40.114 [id number] Univers 15:06:30 15:21:30 Visit Jimenez Murphy 350.1.1 3.10 ity of [place] 4.2.7.2.686 [place] Profess[place] [id number] Me dical [address] 2019-12-24 2019-12-24 Outpatient R [facility] [id number] [facility] 15:15:00 15:15:00 JIMENEZ Duncan [facility] 2019-12-24 2019-12-24 Orders Doctor POWERS 1.2.840.114 [id number] 00:00:00 00:00:00 Only Unassigned, TONG 350.1.13.10 [place] [facility] 4.2.7.2.686 [id number] [id number] 2019-12-24 2019-12-24 Orders Doctor POWERS 1.2.840.114 [id number] Univers 00:00:00 00:00:00 Only Unassigned, TONG 350.1.13.10 ity of [place] [facility] 4.2.7.2.686 Isaias as [id number] [address] 2019-12-02 2019-12-02 [facility] 1.2.840.114 7 [id number] 09:52:00 23:59:00 Encounter Jimenez duncan 350.1.13.10 [place] 4.2.7.2.686 [place] [id number] [facility] 2019-12-02 2019-12-02 [facility] 1.2.840.114 [id number] Univers 09:52:00 23:59:00 Encounter Jimenez duncan 350.1.13.10 ity of [place] 4.2.7.2.686 [place] [id number] [facility] [address] [place] 2019-12-02 2019-12-02 Outpatient R [facility] [id number] Univers 09:50:46 09:51:00 JIMENEZ Duncan [facility] 2019-12-02 2019-12-02 [facility] 1.2.840.114 [id number] 09:50:00 09:51:00 Encounter eTeresahéctor Quintana 350.1.13.10 [place] 4.2.7.2.686 [place] [id number] 805 2019-12-02 2019-12-02 [facility] 1.2.840.114 [id number] [facility] 09:50:00 09:51:00 Encounter eTeresahéctor Quintana 350.1.13.10 ity of [place] 4.2.7.2.686 [facility] [place] [phone] [place] [id number] [place] 2019-12-02 2019-12-02 Orders Doctor PRIYA 1.2.840.114 [id number] 00:00:00 00:00:00 Only Unassigned, TONG 350.1.13.10 [place] [facility] 4.2.7.2.686 [id number] [id number] 2019-12-02 2019-12-02 Orders Doctor PRIYA 1.2.840.114 [id number] Univers 00:00:00 00:00:00 Only Unassigned, TONG 350.1.13.10 ity of [place] [facility] 4.2.7.2.686 Isaias [id number] [address] 2019-09-16 2019-09-16 Outpatient R [facility] [id number] [facility] 11:28:41 23:59:00 Sylvester JIMENEZ hobson f [facility] 2019-09-16 2019-09-16 [facility] 1.2.840.114 [id number] 11:28:00 23:59:00 Encounter e Jimenez Quintana 350.1.13.10 [place] 4.2.7.2.686 [place] [id number] 806 2019-09-16 2019-09-16 [facility] 1.2.840.114 [id number] [facility] 11:28:00 23:59:00 Encounter e, Jimenez Quintana 350.1.13.10 ity of [place] 4.2.7.2.686 [facility] [phone] [facility] [address] Results Test Description Test Time Test Comments Results Result Comments Source Urinalysis macro (dipstick) panel - Urine 2022-10-11 11:21:0 0 Test Item Value Reference Range Interpretation Comme nts Leukocytes (test code = Leukocytes) Negative Nitrite (test code = Nitrite) negative Urobilinogen (test code = Urobilinogen) .2 Protein (test code = Protein) Negative pH (test code = pH) 6.0 Blood (test code = Blood) Negative Specific Tridell (test code = Specific Tridell) 1.020 Ketone (test code = Ketone) Negative Bilirubin (test code = Bilirubin) Negative Glucose (test code = Glucose) Negative Appearance (test code = Appearance) Clear Color (test code = Color) Yellow [facility] - Urine 2021-10-15 16:18:00 Test Item Value Reference Range Interpretation Comments Leukocytes (test code = Small Leukocytes) Nitrite (test code = Nitrite) negative Urobilinogen (test code = .2 Urobilinogen) Protein (test code = Protein) Negative pH (test code = pH) 7.0 Blood (test code = Blood) Negative Specific Tridell (test code = 1.025 Specific Tridell) Ketone (test code = Ketone) Negative Bilirubin (test code = Negative Bilirubin) Glucose (test code = Glucose) Negative Appearance (test code = Slightly Cloudy Appearance) Color (test code = Color) [facility] [id number] 01:01:39 Test Item Value Reference Range Interpretation Comments FECAL IMMUNOCHEMICAL TEST Negative Negative (test code = 45465-2) TOMAS (test code = TOMAS) <100 ng/mL = Negative (does not assure absence of lesion). Lab Interpretation (test Normal code = 51522-3) [facility] [id number] 01:19:39 Test Item Value Reference Range Interpretation Comments TSH (test code = See_Comment [Automated message] [id number]) The system [employer] generated this result transmitted ref erence range: 0.45 - 4 .70 mIU/L. The refe rence range was not u sed to interpret this result as normal/abnor mal. Lab Interpretation (test Normal code = 58887-2) [facility] ([id number])2020-12-15 00:51:16 Test Item Value Reference Range Interpretation Comments NA (test code = 139 mmol/L 135-145 [id number]) K (test code = 4.1 mmol/L 3.5-5.0 9282739985) CL (test code = 99 mmol/L 98-108 4153809136) CO2 TOTAL (test code = 33 mmol/L 23-31 H 5546246997) AGAP (test code = 2-16 1582127114) BUN (test code = 12 mg/dL 7-23 6729909151) GLUCOSE (test code = 73 mg/dL 70-110 7137619894) CREATININE (test code = 0.70 mg/dL 0.50-1.04 1731135876) TOTAL BILI (test code = 0.9 mg/dL 0.1-1.4 4883357331) CALCIUM (test code = 9.8 mg/dL 8.6-10.6 1291630448) T PROTEIN (test code = 7.1 g/dL 6.3-8.2 6591826437) ALBUMIN (test code = 4.1 g/dL 3.5-5.0 1852421819) ALK PHOS (test code = 108 U/L 34-122 6113429567) ALTv (test code = 18 U/L 5-35 1742-6) AST(SGOT) (test code = 34 U/L 13-40 5307061744) eGFR (test code = mL/min/1.73m2 5573482882) TOMAS (test code = TOMAS) Association of Glomerular Filtration Rate (GFR) and Staging of Kidney Disease* + --+ --+ ------+| GFR (mL/min/1.73 m2) ?| With Kidney Damage ?| ?Without Kidney Damage+ --------+ --------+ +| ?>90 ?| ?Stage one ?| ? Normal ?+ ---+ ---+ -------+| ?60-89 ?| ?Stage two ?| ? Decreased GFR ? + --+ --+ ------+| ?30-59 ?| ?Stage three ?| ? Stage three ? + --+ --+ ------+| ?15-29 ?| ?Stage four ? | ? Stage four ?+ ---+ ---+ -------+| ?<15 (or dialysis) ? ?| ?Stage five ? | ? Stage five ?+ ---+ ---+ -------+ *Each stage assumes the associated GFR level has been in effect for at least three months. ?Stages 1 to 5, with or without kidney disease, indicate chronic kidney disease. Notes: Determination of stages one and two (with eGFR >59mL/min/1.73 m2) requires estimation of kidney damage for at least three months as defined by structural or functional abnormalities of the kidney, manifested by either:Pathological abnormalities or Markers of kidney damage (including abnormalities in the composition of the blood or urine or abnormalities in imaging tests). Lab Interpretation Abnormal (test code = 24102-0) [facility]"
[2022-12-26 18:15] VITALS: BMI 21.9
[2022-12-26] MEDS ORDERED: ONDANSETRON 4 MG/2 ML VIAL IV PRN (18:50)
[2022-12-26] MEDS: NA CHLORIDE 0.9% 1,000 ML IV SCH (20:00)
--- NOTE | 2022-12-26 20:35 | P.HP ---
Certification for Inpatient Patient admitted to: Inpatient With expected LOS: <2 Midnights Patient will require the following post-hospital care: None Practitioner: I am a practitioner with admitting privileges, knowledge of patient current condition, hospital course, and medical plan of care. Services: Services provided to patient in accordance with Admission requirements found in Title 42 Section 412.3 of the Code of Federal Regulations Patient History Date of Service: 12/26/22 Reason for admission: Abdominal pain History of Present Illness: 87-year-old female with a past medical history of seasonal allergies, hypertension, GERD, constipation, COPD, chronically elevated litzy diaphragm, hypothyroidism macular degeneration presented to [facility] with abdominal pain, she is a transfer to [facility] for abnormal CT scan. Patient originally went to the emergency room for evaluation for abdominal pain,, nausea that started around [address] of the abdomen with contrast was completed at [facility], impression trace amount of pelvic fluid, likely reactive, tiny foci of gas near cecum, fluid-filled small bowel loops in the right abdomen, suggestive of enteritis versus ileus, small short segment of small bowel thickening in the right lower quadrant, severe diffuse colonic diverticulosis without diverticulitis, questionable prior resection of the right lobe of the liver, 2 cm enhancing focus near hepatic margin hemangioma versus mass. Was referred for surgical evaluation of abnormal CT. Patient is alert a nd oriented x3, no complaint of abdominal pain, distention, nausea vomiting upon examination. Family is at bedside, request patient be full code at this time. ER evaluation Upon arrival to the ER blood pressure was 164/75, heart rate was 94, respirations 18, patient was 82% on room air, afebrile Laboratory evaluation CMP glucose was slightly elevated at 180, CO2 slightly elevated at 36, sodium and potassium are within normal limits, WBCs are normal at 9.6, hemoglobin hematocrit stable at 12.5, 39.3, slight left shift neutrophils 82, UA was normal, CT of the abdomen negative as explained above Allergies No Known Allergies Allergy (Unverified 12/26/22 18:33) Home Medications: Aspirin [Aspirin EC 81 MG] 81 mg PO DAILY 12/26/22 Docusate Sodium 100 mg PO BID PRN 12/26/22 Fluoxetine HCl 10 mg PO DAILY 12/26/22 Furosemide 40 mg PO 1X 12/26/22 Levocetirizine Dihydrochloride [Allergy Relief] 5 mg PO BEDTIME 12/26/22 Losartan Potassium [Cozaar] 100 mg PO DAILY 12/26/22 Montelukast [Singulair] 10 mg PO BEDTIME 12/26/22 Omeprazole 20 mg PO DAILY 12/26/22 Propylene Glycol/Peg 400/Pf [Systane 0.3-0.4% Eye Drops] 1 each OP BID 12/26/22 Verapamil HCl [Verapamil ER] 240 mg PO BEDTIME 12/26/22 levalbuterol HCL [Levalbuterol HCl] 0.31 mg IH DAILY 12/26/22 - Past Medical/Surgical History Has patient received pneumonia vaccine in the past: Yes Diabetic: No -: Seasonal allergies -: Hypothyroidism -: Hypertension -: GERD -: Constipation -: COPD -: Home O2 at bedtime as needed -: Chronically elevated hemidiaphragm -: Macular degeneration -: Hysterectomy -: Hernia surgery Psychosocial/ Personal History: Lives alone, works part-time, uses no equipment for ambulation - Social History Smoking Status: Never smoker Alcohol use: Yes CD- Drugs: Yes Place of Residence: Home Physical Examination - Vital Signs Temperature: 97.7 F Blood Pressure: 145/68 Pulse: 78 Respirations: 17 Pulse Ox (%): 95 - Physical Exam General: Alert, In no apparent distress, Oriented x3, Other (Hard of hearing) HEENT: Atraumatic, Normocephalic, PERRLA Neck: Supple, 2+ carotid pulse no bruit, JVD not distended Respiratory: Clear to auscultation bilaterally, Normal air movement Cardiovascular: No edema, Normal pulses, Regular rate/rhythm, Normal S1 S2 Capillary refill: <2 Seconds Gastrointestinal: Hypoactive, No tenderness, No rebound, No guarding Integumentary: No rashes, No breakdown Neurological: Normal speech, Normal strength at 5/5 x4 extr Assessment and Plan - Plan Assessment and plan abdominal pain Nausea vomiting Abnormal CT diverticulosis with gas noted Hypertension GERD COPD on home O2 at at bedtime Constipation Seasonal allergies DVT prophylaxis Assessment and plan abdominal pain-as needed antiemetics, analgesics Nausea vomiting Abnormal CT diverticulosis with gas noted-surgical consult, n.p.o. Hypertension-resume appropriate home meds GERD-resume appropriate home meds COPD on home O2 at at bedtime-O2 2 L keep sats greater than 90%, resume nebs Constipation- Seasonal allergies-resume appropriate home meds DVT prophylaxis Full code Diet n.p.o. DVT Lovenox - Advance Directives Does patient have a Living Will: No Does patient have a Durable POA for Healthcare: Yes
[2022-12-27 04:13] LABS: Protime INR 1.11
[2022-12-27 04:14] LABS: Absolute Lymphocytes (CBC) 1.4 K/uL (0.7-4.9); Hematocrit 34.6 % (36.0-45.0); MCV 91.6 fL (80-100); MPV 10.7 fL (7.6-11.3); RBC Red Blood Cell Count 3.78 M/uL (3.86-4.86)
[2022-12-27 05:02] LABS: Phosphorus 2.8 mg/dL (2.5-4.9); Potassium 3.3 mEq/L (3.5-5.1)
[2022-12-27] MEDS: KCL 20 MEQ/100 mL IVPB 20 MEQ/100 ML BAG IV SCH ×2 (06:14→09:02)
[2022-12-27] MEDS: NA CHLORIDE 0.9% 1,000 ML IV SCH ×2 (06:14→20:14)
[2022-12-27 08:21] LABS: Specific Gravity > 1.030 (1.005-1.030); Urine Bacteria None Seen /HPF (<20); Urine Bilirubin NEGATIVE (Negative); Urine Blood Negative (Negative); Urine Clarity Clear (Clear); Urine Color Yellow (Yellow); Urine Glucose NEGATIVE (Negative); Urine Mucus 1+ /HPF (None Seen); Urine Protein 1+ (Negative); Urine RBC <5 /HPF (None Seen); Urine Urobilinogen 1+ (Normal)
[2022-12-27] MEDS ORDERED: HOME MED 1 EA UNK (Omeprazole [Omeprazole] 20 MG Capsule.Dr) PO SCH (09:00)
[2022-12-27] MEDS ORDERED: LEVALBUTEROL HCL IH SCH (09:00)
[2022-12-27] MEDS: PANTOPRAZOLE 40MG TABLET PO SCH ×2 (09:04→09:06)
[2022-12-27] MEDS: FLUOXETINE 10 MG CAP PO SCH (09:04)
[2022-12-27] MEDS: LOSARTAN POTASSIUM 50 MG TABLET PO SCH (09:05)
--- NOTE | 2022-12-27 14:23 | RAD REPORT ---
EXAM DESCRIPTION: CT - Abdomen Pelvis W Contrast - 12/27/2022 1:11 pm CLINICAL HISTORY: f/u from CT at [place] 12/26, gas near cecum COMPARISON: ABDOMINAL EXAM COMPLETE dated 12/11/2013 TECHNIQUE: Thin cut axial CT imaging of the abdomen and pelvis was performed following intravenous a dministration of 100 mL Isovue 300. Multiplanar reformats were generated and reviewed. All CT scans are performed using dose optimization technique as appropriate and may include automated exposure control or mA/KV adjustment according to patient size. FINDINGS: No suspicious findings in the lung bases. Elevation of the right hemidiaphragm. Lobulated contour with marginal scarring and volume loss of the peripheral right liver lobe. Geographic regions of differential enhancement. Subcapsular upper right lobe masslike region of relative hyperenhancement anteriorly measuring 2.8 x 2.2 centimeter in great est axial dimensions, and 3.2 centimeter in greatest craniocaudal extent. The relative hypertrophy of the left liver lobe with mild contour nodularity. Adrenal glands, spleen, and pancreas show no suspi cious findings. Gallbladder and biliary tree are also without suspicious finding. Symmetric renal function is seen with no hydronephrosis or suspicious renal mass. No dilated bowel loops or bowel wall thickening. Colonic diverticulosis. Trace free pelvic fluid. No free air, fluid collections, or inflammatory stranding. Incidentally noted prominent duodenal diverti culum. No hernia, mass or bulky lymphadenopathy. The urinary bladder is suboptimally distended, limit ing evaluation. No suspicious bony findings. IMPRESSION: Lobulated contour with marginal scarring of the right liver lobe, and elevation of the r ight hemidiaphragm, findings which may relate to sequelae of prior trauma. Right hepatic subcapsular regions of differential enhancement including the masslike 2.8 centimeter s ubcapsular focus of heterogeneous hyperenhancement. This may relate to posttraumatic or iatrogenic se quelae as well. Correlation with prior imaging if available would be helpful. Alternatively, a follow -up CT or MRI with liver mass protocol would be recommended in 6 months to ensure stability of the fi ndings. No other acute intra-abdominal process. Other incidental findings as above.
--- NOTE | 2022-12-27 14:26 | CON ---
Date of Consultation: 12/27/2022 Reason For Service: Colitis, enteritis, possibly diverticulitis. History Of Present Illness: This is the case of an 87-year-old patient, transferred from [facility] after have been seen for abdominal pain and on the CAT scan, the patient seems to have some air bubbles near the cecum, unable to say at that moment it is related to diverticulum or just a containe d perforation, so the patient was transferred to this institution for followup. The radiologist requ est to have a CAT scan repeated today to have a better understanding of that area of concern. The pa lucia states she had some pain yesterday. She usually has abdominal pain. She has history of divert iculum after multiple abdominal surgeries include hernia surgeries. Also, she has history of bladder left and also a rectocele. Constipation for her is every day live and sometimes even with stool sof teners that she takes every day is hard to get the stools out. Today, she feels a lot better. The p ain actually has gone. No nausea, no vomiting. No fever. No shortness of breath. No chest pain. She is passing flatus. Review of Systems: Ten points otherwise unremarkable. Allergies: NONE. Past Medical History: Reviewed with the patient that includes also diverticular disease. Past Surgical History: Includes hysterectomy, umbilical surgery. Social History: She does not smoke. She does not drink alcohol. Physical Examination: General: The patient is awake, alert. HEENT: Pupils are equal and reactive. Anicteric. Neck: Supple. Chest: Clear. Heart: S1, S2. Abdomen: Soft and depressible. No guarding or rebound. No peritoneal signs. Extremities: Good capillary refill. Laboratory Data: Repeat CAT scan is still pending. Blood work reviewed with WBC count of 6.1, INR i s 1.1, and potassium 3.3. Plan: Clinically, she is improved. We are waiting for the repeat as requested by the radiologist [facility]. If CAT scan shows same of improvement and clinically she improved better, we francis ht have a case to start at least clear liquid diet. She states she had a colonoscopy not too long ag o, but she does not remember exactly which is the year. We might have to as an outpatient just look into that, leave it deeper in case she may to have repeat the since. We will like to see the area of the cecum to make sure that the findings are consistent with no tumors in that area. We will follow the patient with you. BRIAN Voice ID: [id number] Report ID: [id number]
[2022-12-27] MEDS ORDERED: ACETAMINOPHEN 325 MG TABLET PO PRN (17:09)
--- NOTE | 2022-12-27 17:11 | P.PN ---
Subjective Date of Service: 12/27/22 Chief Complaint: Abdominal pain Patient denies any abdominal pain. She denies any nausea or vomiting. No reported fever. Physical Examination - Vital Signs Temperature: 97.5 F Blood Pressure: 166/74 Pulse: 75 Respirations: 18 Pulse Ox (%): 98 - Studies Laboratory Data (last 24 hrs) 12/27/22 13:26: Potassium 4.1 D 12/27/22 02:43: PT 12.2, INR 1.11 12/27/22 02:43: Sodium 143, Potassium 3.3 L, BUN 14, Creatinine 0.80, Glucose 90, Phosphorus 2.8, Magnesium 2.0 12/27/22 02:43: WBC 6.10, Hgb 11.2 L, Hct 34.6 L, Plt Count 165 Assessment And Plan - Plan Physical Exam General: Alert, In no apparent distress, Oriented x3, Other (Hard of hearing) HEENT: Atraumatic, Normocephalic, PERRLA Neck: Supple, 2+ carotid pulse no bruit, JVD not distended Respiratory: Clear to auscultation bilaterally, Normal air movement Cardiovascular: No edema, Normal pulses, Regular rate/rhythm, Normal S1 S2 Gastrointestinal: Normal bowel sounds, No tenderness, No rebound, No guarding Integumentary: No rashes, No breakdown Neurological: Normal speech, Normal strength at 5/5 x4 extr Diagnosis Ab[address] CT Diverticulosis with possible microperforation Hypertension GERD COPD on home O2 at at bedtime Constipation Plan: Diverticulosis with possible microperforation Patient currently has a benign abdomen, no tenderness. General surgery input appreciated. No surgical management recommended. Continue antibiotics Clear liquid diet Essential hypertension Resume home medications for hypertension GERD-resume appropriate home meds COPD Patient is on nocturnal oxygen. Continue nebs. Functional constipation Stool softeners DVT prophylaxis: SCD
[2022-12-27] MEDS ORDERED: CETIRIZINE HCL 5 MG TABLET PO SCH (21:00)
[2022-12-27] MEDS ORDERED: MONTELUKAST 10 MG TAB PO SCH (21:00)
[2022-12-27] MEDS ORDERED: VERAPAMIL SR 240 MG TABLET PO SCH (21:00)
[2022-12-27] MEDS ORDERED: VERAPAMIL HCL 240 MG PO SCH (21:00)
[2022-12-28 03:50] LABS: Hematocrit 35.8 % (36.0-45.0); Lymphocytes % 32.6 % (15.3-44.8); MPV 10.6 fL (7.6-11.3); RBC Red Blood Cell Count 3.89 M/uL (3.86-4.86)
[2022-12-28 03:59] LABS: Phosphorus 2.7 mg/dL (2.5-4.9); Potassium 3.9 mEq/L (3.5-5.1)
[2022-12-28] MEDS ORDERED: POTASSIUM CL SA 10 MEQ TAB PO ONE (06:26)
[2022-12-28] MEDS ORDERED: LEVALBUTEROL 0.63 MG/3 ML NEB IH SCH (08:00)
[2022-12-28] MEDS: LOSARTAN POTASSIUM 50 MG TABLET PO SCH (08:22)
[2022-12-28] MEDS: NA CHLORIDE 0.9% 1,000 ML IV SCH ×2 (08:23→11:00)
[2022-12-28] MEDS: FLUOXETINE 10 MG CAP PO SCH (08:23)
[2022-12-28 10:24] VITALS: O2SAT 93
[2022-12-28 12:19] VITALS: BP 141/67; TEMP 97.1
--- NOTE | 2022-12-28 14:08 | PN ---
Date of Progress Note: 12/26/2022 Diagnosis: Diverticulitis. Subjective: The patient is doing better. Completely asymptomatic. No nausea, vomiting. No fever. Having bowel movement. Passing flatus. Review of Systems: Ten points otherwise unremarkable. Physical Examination: Chest: Clear. Abdomen: Soft and depressible. No guarding or rebound. Extremities: Good capillary refill. Laboratory Data: CAT scan findings, the second CT scan done in this institution reviewed with the rj myers. Plan: Advance diet. As an outpatient, we would like to her to come to the office. We have to discu ss the options of colonoscopy to confirm the findings on this CAT scan. She will be going home on so me antibiotics and diverticular diet. Once again, colonoscopy is important to make sure there is no neoplastic event in that area. LISBET/HALIMA Voice ID: [id number] Report ID: [id number]
--- NOTE | 2022-12-28 14:09 | P.DS ---
Admission Date: 12/26/22 Discharge Date: 12/28/22 Disposition: ROUTINE DISCHARGE Discharge Condition: FAIR Reason for Admission: Abdominal pain Brief History of Present Illness: 87-year-old female with a past medical history of seasonal allergies, hypertension, GERD, constipation, COPD, chronically elevated litzy diaphragm, hypothyroidism macular degeneration presented to [facility] with abdominal pain, she is a transfer to [facility] for abnormal CT scan. Patient originally went to the emergency room for evaluation for abdominal pain,, nausea that started around [address] of the abdomen with co ntrast was completed at [facility], impression trace amount of pelvic fluid, likely reactive, tiny foci of gas near cecum, fluid-filled small bowel loops in the right abdomen, suggestive of enteritis versus ileus, small short segment of small bowel thickening in the right lower quadrant, severe diffuse colonic diverticulosis without diverticulitis, questionable prior resection of the right lobe of the liver, 2 cm enhancing focus near hepatic margin hemangioma versus mass. Was referred for surgical evaluation of abnormal CT. Patient was alert and oriented x3, no complaint of abdominal pain, distention, nausea vomiting upon examination. ER evaluation Upon arrival to the ER blood pressure was 164/75, heart rate was 94, respirations 18, patient was 82% on room air, afebrile Laboratory evaluation CMP glucose was slightly elevated at 180, CO2 slightly elevated at 36, sodium and potassium are within normal limits, WBCs are normal at 9.6, hemoglobin hematocrit stable at 12.5, 39.3, slight left shift neutrophils 82, UA was normal. Hospital Course: Diagnosis Abnormal CT Diverticulosis with possible microperforation Hypertension GERD COPD on home O2 at at bedtime Constipation Patient admitted to the medical floor and the following medical problems addressed: Diverticulosis with possible microperforation. Patient abdomen was benign during examination throughout the hospital stay. She was treated with broad-spectrum antibiotic. She was seen and evaluated by surgery Dr. Luo who recommended nonsurgical managed Patient started on a clear liquid diet and advance to soft diet which she tolerated Patient deemed stable for discharge with oral antibiotics per surgery. Follow-up with Dr. Luo in the office within 2 weeks Essential hypertension Resume home medications for hypertension GERD-resume appropriate home meds COPD Patient is on nocturnal oxygen. Continue nebs. Functional constipation Managed with stool softeners. Liver mass Chronic, suspected to be sequela of trauma or iatrogenic. Follow-up with PCP as outpatient. Vital Signs/Physical Exam: Temp Pulse Resp BP Pulse Ox 97.1 F 70 12 141/67 H 95 12/28/22 12:00 12/28/22 12:00 12/28/22 12:00 12/28/22 12:00 12/28/22 12:00 General: Alert, In no apparent distress, Oriented x3 HEENT: Mucous membr. moist/pink Neck: Supple, JVD not distended Respiratory: Clear to auscultation bilaterally, Normal air movement Cardiovascular: No edema, Regular rate/rhythm, Normal S1 S2 Gastrointestinal: Normal bowel sounds, Soft and benign, Non-distended, No tenderness Musculoskeletal: No swelling Integumentary: No rashes Neurological: Normal strength at 5/5 x4 extr Laboratory Data at Discharge: WBC 6.00 thou/uL (4.3-10.9) 12/28/22 02:30 Hgb 11.6 g/dL (12.0-15.0) L 12/28/22 02:30 Hct 35.8 % (36.0-45.0) L 12/28/22 02:30 Plt Count 166 thou/uL (152-406) 12/28/22 02:30 PT 12.2 SECONDS (9.5-12.5) 12/27/22 02:43 INR 1.11 12/27/22 02:43 Sodium 141 mEq/L (136-145) 12/28/22 02:30 Potassium 3.9 mEq/L (3.5-5.1) 12/28/22 02:30 BUN 13 mg/dL (7-18) 12/28/22 02:30 Creatinine 0.72 mg/dL (0.55-1.02) 12/28/22 02:30 Glucose 68 mg/dL (74-106) L 12/28/22 02:30 Phosphorus 2.7 mg/dL (2.5-4.9) 12/28/22 02:30 Magnesium 2.0 mg/dL (1.6-2.4) 12/28/22 02:30 Home Medications: Aspirin [Aspirin EC 81 MG] 81 mg PO DAILY 12/26/22 Docusate Sodium 100 mg PO BID PRN 12/26/22 Fluoxetine HCl 10 mg PO DAILY 12/26/22 Furosemide 40 mg PO 1X 12/26/22 Levocetirizine Dihydrochloride [Allergy Relief] 5 mg PO BEDTIME 12/26/22 Losartan Potassium [Cozaar] 100 mg PO DAILY 12/26/22 Montelukast [Singulair*] 10 mg PO BEDTIME 12/26/22 Omeprazole 20 mg PO DAILY 12/26/22 Propylene Glycol/Peg 400/Pf [Systane 0.3-0.4% Eye Drop] 1 each OP BID 12/26/22 Verapamil HCl [Verapamil ER] 240 mg PO BEDTIME 12/26/22 levalbuterol HCL [Levalbuterol HCl] 0.31 mg IH DAILY 12/26/22 Ciprofloxacin HCl [Cipro] 500 mg PO BID #14 tab 12/28/22 Metronidazole 500 mg PO Q8H 7 Days #21 tab 12/28/22 metroNIDAZOLE [Flagyl] 500 mg PO Q8H #21 tab 12/28/22 New Medications: Ciprofloxacin HCl [Cipro] 500 mg PO BID #14 tab metroNIDAZOLE [Flagyl] 500 mg PO Q8H #21 tab Diet: GI Soft Activity: Fall precautions Followup: Wilfredo Luo MD [ACTIVE - CAN ADMIT] - 1-2 Weeks Time spent managing pt's care (in minutes): 33
== END 2022-12-28 15:13 | disposition home or self-care (01) | DRG 392 ==
LOC: 2ND 17:11
PROVIDERS: ADMIT Internal Medicine; ATTEND Internal Medicine
DX: K57.20 Diverticulitis of large intestine with perforation and abscess without bleeding (principal); K21.9 Gastro-esophageal reflux disease without esophagitis; I10 Essential (primary) hypertension; J30.2 Other seasonal allergic rhinitis; E03.9 Hypothyroidism, unspecified; K59.04 Chronic idiopathic constipation; J44.9 Chronic obstructive pulmonary disease, unspecified; R16.0 Hepatomegaly, not elsewhere classified; Z60.2 Problems related to living alone; Z99.81 Dependence on supplemental oxygen; Z79.82 Long term (current) use of aspirin; Z90.710 Acquired absence of both cervix and uterus; Z79.899 Other long term (current) drug therapy
CPT/HCPCS: 36415; 74177; 80048; 81001; 83735; 84100; 84132; 85025; 85610; J3480; J7030; J7614; Q9967